=== PATIENT | female | born 1985 | race Caucasian/White ===

== ENCOUNTER 2017-02-06 18:26 | Emergency (ER) | payer OTHER ==
[~2017-02-06] VITALS: Ht 160 cm; Wt 90.7 kg
--- NOTE | 2017-02-06 19:57 | PHYS DOC ---
Past History Past Medical History: Diabetes, Hypertension Past Surgical History: Hysterectomy Smoking: Non-smoker Alcohol Use: None Drug Use: None Adult General Chief Complaint Chief Complaint: HEADACHE HPI HPI Patient is a 31 year old female who presents with headache. She has had prior headaches but no prior headache evaluation. She states this all started after she was placed on a new blood pressure medicine, Bystolic 5 mg. She has actually never been on blood pressure medication until Monday. She states the headache has been gradual but worsening- mid forehead. Some nausea no vomiting. Headache Increased today. She also was told that she had hyperglycemia and was placed on metformin. She just picked that up today as well. She states at work she just felt "horrible" and her vision seemed blurry to where she did more dry. No syncope, no neck pain, no numbness or tingling to arms or legs, no loss of vision. Nausea but no vomiting. No recent fever or illness. No recent travel. No chest pain or shortness of air. Recent visits to her primary care doctor for evaluation with recent lab work done on Monday. Review of Systems Review of Systems Constitutional: Denies fever or chills Eyes: Denies change in visual acuity but slightly blurry, No loss of vision, no redness, or eye pain HENT: Denies nasal congestion or sore throat Respiratory: Denies cough or shortness of breath Cardiovascular: No additional information not addressed in HPI . Denies chest pain. GI: Denies abdominal pain, some nausea, No vomiting, bloody stools or diarrhea : Denies dysuria or hematuria Musculoskeletal: Denies back pain or joint pain; no neck pain. Integument: Denies rash or skin lesions Neurologic: headache (see HPI), No focal weakness or sensory changes. No gait disturbance. Endocrine: Denies polyuria or polydipsia Current Medications Current Medications Allergies Allergies Allergies Coded Allergies Type Severity Reaction Last Updated Verified nitrofurantoin Allergy Unknown 02/06/17 Yes Physical Exam Physical Exam Constitutional: Well developed, well nourished, no acute distress, non-toxic appearance. HENT: Normocephalic, atraumatic, bilateral external ears normal, oropharynx moist, no oral exudates, nose normal. TMs clear bilaterally Eyes: PERRLA, EOMI, conjunctiva normal, no discharge. Neck: Normal range of motion, no tenderness, supple, no stridor. Cardiovascular:Heart rate regular rhythm, no murmur Lungs & Thorax: Bilateral breath sounds clear to auscultation Abdomen: Bowel sounds normal, soft, no tenderness, no masses, no pulsatile masses. Skin: Warm, dry, no erythema, no rash. Back: No tenderness, no CVA tenderness. Extremities: No tenderness, no cyanosis, no clubbing, ROM intact, no edema. Neurologic: Alert and oriented X 3, normal motor function, normal sensory function, no focal deficits noted. Normal speech Psychologic: Affect normal, judgement normal, mood normal. Current Patient Data Vital Signs Vital Signs Date Time Temp Pulse Resp B/P (MAP) Pulse Ox O2 Delivery O2 Flow Rate FiO2 02/06/17 19:10 97.8 83 18 100 Room Air BP left arm: 135/107 Lab Results Laboratory Tests Test 02/06/17 20:49 Glucose (Fingerstick) 96 mg/dL Current Medications Medications (Trade) Dose Ordered Sig/Castro Route PRN Reason Start Time Stop Time Status Last Admin Dose Admin Ketorolac Tromethamine (Toradol) 60 mg 1X ONCE IM 02/06/17 21:15 02/06/17 21:15 DC 02/06/17 21:06 60 MG Promethazine HCl (Phenergan Im) 25 mg 1X ONCE IM 02/06/17 21:15 02/06/17 21:15 DC 02/06/17 21:06 25 MG Radiology/Procedures Radiology/Procedures [address] [address] IMAGING REPORT Signed PATIENT: DARIEN NEVES ACCOUNT: [id number] : 1985 LOCATION: ER AGE: 31 SEX: F EXAM STATUS: REG ER ORD. PHYSICIAN: ANIA NEW MD REASON: Headache, blurred vision, started new blood pressure med 3 days a PROCEDURE: CT HEAD WO CONTRAST PROCEDURE CT head without contrast dated 02/06 7 obtained. HISTORY Headache and blurry vision for 3 days. TECHNIQUE Contiguous axial imaging of the head was performed from skull base to vertex. No contrast administered.Exposure: One or more of the following individualized dose reduction techniques were utilized for this exam: 1. Automated exposure control. 2. Adjustment of the mA and/or kV according to patient size. 3. Use of iterative reconstruction technique. COMPARISON None. FINDINGS Ventricles and sulci are within normal limits for age. No midline shift or mass effect. Brain parenchyma is of normal attenuation. No hemorrhage or extra-axial collection. Posterior fossa and brainstem unremarkable. Visualized paranasal sinuses and mastoid air cells are clear. No acute calvarial abnormality. IMPRESSION No evidence of acute intracranial abnormality. Electronically signed by: Sumeet Michaud (February 06, 2017 20:38:35) DICTATED AND SIGNED BY: SUMEET MICHAUD MD DATE: 02/06/172037 CC: ANIA NEW MD; NON,STAFF ~ Course & Med Decision Making Course & Med Decision Making Pertinent Labs and Imaging studies reviewed. (See chart for details) 2044 pm: CT head negative. Accu check: 96. Patient with no acute neurologic compromise. Headache seems to be related to the start of the hypertension meds. reviewed findings with patient. She was dosed with Toradol and Phenergan IM here. SHe does have someone to drive her. She is to contact her PCP IN THE AM. Dragon Disclaimer Dragon Disclaimer This chart was dictated in whole or in part using Voice Recognition software in a busy, high-work load, and often noisy Emergency Department environment. It may contain unintended and wholly unrecognized errors or omissions. Departure Departure: Referrals: NON,STAFF (PCP) ANIA NEW MD February 06, 2017 19:57
--- NOTE | 2017-02-06 20:39 | RAD ---
PROCEDURE CT head without contrast dated 02/06 7 obtained. HISTORY Headache and blurry vision for 3 days. TECHNIQUE Contiguous axial imaging of the head was performed from skull base to vertex. No contrast administered.Exposure: One or more of the following individualized dose reduction techniques were utilized for this exam: 1. Automated exposure control. 2. Adjustment of the mA and/or kV according to patient size. 3. Use of iterative reconstruction technique. COMPARISON None. FINDINGS Ventricles and sulci are within normal limits for age. No midline shift or mass effect. Brain parenchyma is of normal attenuation. No hemorrhage or extra-axial collection. Posterior fossa and brainstem unremarkable. Visualized paranasal sinuses and mastoid air cells are clear. No acute calvarial abnormality. IMPRESSION No evidence of acute intracranial abnormality. Electronically signed by: Sumeet Michaud (February 06, 2017 20:38:35)
[2017-02-06 21:05] VITALS: BP 135/107
[2017-02-06] MEDS ORDERED: PROMETHAZINE IM 25 MG/ML VIAL IM ONE (21:15)
[2017-02-06] MEDS ORDERED: KETOROLAC 60 MG/2 ML VIAL. IM ONE (21:15)
== END 2017-02-06 21:05 | disposition home or self-care (01) ==
LOC: ER 18:26
DX: R51 Headache (principal); E11.65 Type 2 diabetes mellitus with hyperglycemia; I10 Essential (primary) hypertension; Z88.0 Allergy status to penicillin
CPT/HCPCS: 70450; 82947; 96372; 99284; J1885; J2550

== ENCOUNTER 2020-07-25 03:54 | Emergency (ER) | payer OTHER ==
[~2020-07-25] VITALS: Ht 160 cm; Wt 88.6 kg
--- NOTE | 2020-07-25 04:01 | PHYS DOC ---
Past History Past Medical History: Diabetes, Hypertension Past Medical History Severe allergy to Peanuts Past Surgical History: Hysterectomy Smoking: Non-smoker Alcohol Use: None Drug Use: None General Adult HPI: HPI: "..I woke up with this itchy rash or hives. .. on my legs.. my heart was beating fast.. it feels .. Like I am getting a allergic reaction .. some time if I am exposed to peanuts.. and get this kind of reaction... but far as I know.. only thing new was I age chilli at a friends house..." Patient is a 34 year old female who presents with above hx and complaints itchy hive ear rash on legs. Patient does have a history of allergies particularly to peanuts which causes wheezing and hives. Patient denies any exposure to peanuts in the last 24 hours. Did eat chili at a friend's house tonight at approximately 1700 hrs. No one else became ill after eating chili. Patient denies any changes in soaps, lotions, clothing, or other exposures. Patient does have hives on her lower legs that are very itchy. No stridor. 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 There is no hives on her upper body but localized primarily from her waist down. No recent travel. No exposure to ill individuals. No exposure to animals. Patient does have a history elevated glucoses and diabetes. Seasonal allergies. And peanut allergies. Patient normally follows with Dr. Almanzar. Review of Systems: Review of Systems: Constitutional: Denies fever or chills Eyes: Denies change in visual acuity HENT: Denies nasal congestion or sore throat Respiratory: Denies cough or shortness of breath Cardiovascular: Complaint rapid heart rate GI: Denies abdominal pain, nausea, vomiting, bloody stools or diarrhea : Denies dysuria Musculoskeletal: Denies back pain or joint pain Integument: Complaints of hives/rash on lower legs Neurologic: Denies headache, focal weakness or sensory changes Endocrine: Denies polyuria or polydipsia Lymphatic: Denies swollen glands Psychiatric: Denies depression or anxiety Family History: Family History: Noncontributory Current Medications: Current Meds: See nursing for home meds Allergies: Allergies: Allergies Coded Allergies Type Severity Reaction Last Updated Verified nitrofurantoin Allergy Unknown 02/06/17 Yes Physical Exam: PE: Constitutional:, Mild distress, non-toxic appearance. [] HENT: Normocephalic, atraumatic, bilateral external ears normal, oropharynx moist, no oral exudates, nose normal. Geographic tongue Eyes: PERRLA, EOMI, conjunctiva normal, no discharge. [] Neck: Normal range of motion, no tenderness, supple, no stridor. [] Cardiovascular: Tachycardia heart rate regular rhythm, no murmur [] Lungs & Thorax: Bilateral breath sounds equal apex few scattered wheezes on auscultation [] Abdomen: Bowel sounds normal, soft, no tenderness, no masses, no pulsatile masses. Old surgery scars Skin: Warm, dry, no erythema, small itchy hives on lower legs Back: No tenderness, no CVA tenderness. [] Extremities: No tenderness, no cyanosis, no clubbing, ROM intact, no edema. [] Neurologic: Alert and oriented X 3, normal motor function, normal sensory function, no focal deficits noted. [] Psychologic: Affect anxious,, judgement normal, mood normal. [] EKG: EKG: My interpretation tachycardia at 101 bpm. No acute morphology Radiology/Procedures: Radiology/Procedures: [] Heart Score: Risk Factors: Risk Factors: DM, Current or recent (<one month) smoker, HTN, HLP, family histo ry of CAD, obesity. Risk Scores: Score 0 - 3: 2.5% MACE over next 6 weeks - Discharge Home Score 4 - 6: 20.3% MACE over next 6 weeks - Admit for Clinical Observation Score 7 - 10: 72.7% MACE over next 6 weeks - Early Invasive Strategies Course & Med Decision Making: Course & Med Decision Making Pertinent Labs and Imaging studies reviewed. (See chart for details) Patient to try and determine if she has any other exposures or changes in soaps, clothing, lotions etc. Patient to take Benadryl 50 mg 4 times a day when at home. Patient take prednisone 50 mg a day for the next 5 days. Patient take Pepcid 20 mg twice a day. Patient use MDI 2 puffs 4 times a day. Follow-up primary care. Return if any concerns. We will give a dose of milk of mag [employer] in the event that chili was causing her allergic reaction.( To increase transit time.) Impression: 1. Hives 2. Allergic reaction 3. Hx DM 4. Hx. of severe peanut allergy [] Dragon Disclaimer: Dragon Disclaimer: This electronic medical record was generated, in whole or in part, using a voice recognition dictation system. Departure Departure: Disposition: 01 DC HOME SELF CARE/HOMELESS Condition: STABLE Referrals: CECILLE ALMANZAR (PCP) Marco A Famotidine (PEPCID) 20 Mg Tablet 20 MG PO BID for Hives for 10 Days, #20 TAB Prov: SHEILA BLUE MD 07/25/20 Prednisone (PREDNISONE) 50 Mg Tablet 50 MG PO DAILY for Hives for 5 Days, #5 TAB Prov: SHEILA BLEU MD 07/25/20 Dragon Disclaimer This chart was dictated in whole or in part using Voice Recognition software in a busy, high-work load, and often noisy Emergency Department environment. It may contain unintended and wholly unrecognized errors or omissions. Dragon Disclaimer This chart was dictated in whole or in part using Voice Recognition software in a busy, high-work load, and often noisy Emergency Department environment. It may contain unintended and wholly unrecognized errors or omissions. SHEILA BLUE MD Jul 25, 2020 04:01
[2020-07-25 04:05] VITALS: BP 130/84
[2020-07-25] MEDS ORDERED: predniSONE 10 MG TABLET PO ONE (04:15)
[2020-07-25] MEDS ORDERED: MAGNESIUM HYDROXIDE 2,400 MG/30 ML ORAL.SUSP. PO ONE (04:15)
[2020-07-25] MEDS ORDERED: FAMOTIDINE 20 MG TABLET PO ONE (04:15)
[2020-07-25] MEDS ORDERED: ALBUTEROL SULFATE 8GM INHALER. ONE (04:15)
[2020-07-25] MEDS ORDERED: ALBUTEROL SULFATE 8GM INHALER. INH ONE (04:15)
[2020-07-25] MEDS ORDERED: predniSONE 10 MG TABLET ONE (04:17)
[2020-07-25] MEDS ORDERED: MAGNESIUM HYDROXIDE 2,400 MG/30 ML ORAL.SUSP. ONE (04:17)
[2020-07-25] MEDS ORDERED: FAMOTIDINE 20 MG TABLET ONE (04:17)
[2020-07-25] MEDS ORDERED: PRED50TA PO (04:24)
[2020-07-25] MEDS ORDERED: FAMO-63 PO (04:24)
--- NOTE | 2020-07-25 05:59 | EKG ---
[address] [address] Test Date: 2020-07-25 Test Time: 04:10:49 Pat Name: DARIEN NEVES Department: Room: Gender: F Bell Attendant: : 1985 Requested By: SHEILA BLUE Order Number: [id number] Reading MD: Titi Wynne Measurements Intervals [place] Rate: 101 P: 30 MA: 164 QRS: 42 QRSD: 80 T: 18 QT: 342 QTc: 444 Interpretive Statements SINUS TACHYCARDIA Electronically Signed On 07-28-2020 10:52:48 MASTIC FLOOR LAYER by Titi Wynne
== END 2020-07-25 04:50 | disposition home or self-care (01) ==
LOC: ER 03:54
DX: T78.40XA Allergy, unspecified, initial encounter (principal); L50.9 Urticaria, unspecified; E11.9 Type 2 diabetes mellitus without complications; I10 Essential (primary) hypertension; Z91.010 Allergy to peanuts; Z88.8 Allergy status to other drugs, medicaments and biological substances; X58.XXXA Exposure to other specified factors, initial encounter
CPT/HCPCS: 93005; 94640; 99284; J7512; J7613; 94664